=== PATIENT | male | born 1995 | race Two or more races ===

== ENCOUNTER 2019-02-18 09:54 | Emergency (ER) | payer OTHER, MEDICAID ==
[~2019-02-18] VITALS: Ht 190.5 cm; Wt 79.4 kg
[2019-02-18 10:05] VITALS: BP 126/76
== END 2019-02-18 12:10 | disposition home or self-care (01) ==
LOC: ER 09:54
DX: S16.1XXA Strain of muscle, fascia and tendon at neck level, initial encounter (principal); V43.52XA Car driver injured in collision with other type car in traffic accident, initial encounter; Y93.I9 Activity, other involving external motion; Y92.410 Unspecified street and highway as the place of occurrence of the external cause; Y99.8 Other external cause status
CPT/HCPCS: 72040